=== PATIENT | female | born 1930 | race Caucasian/White ===

== ENCOUNTER → 2017-02-09 | Outpatient (CLI) | payer MEDICARE ==
--- NOTE | 2017-02-10 07:51 | WWHP ---
DATE OF SERVICE: 02/09/2017. CHIEF COMPLAINT: Patient is here for her routine gynecologic exam. HPI: This is an 86-year-old G0 with an LMP of 1961. The patient is without gynecologic complaints. She has been followed for postmenopausal ovarian cysts and has had ultrasounds and CA-125 test on several occasions. The most recent ultrasound on 08/20/2016 showed left ovarian cyst measuring 5.3 cm in the left ovary. There was also right ovarian cyst measuring approximately 3.1 cm and 3.2 cm. The patient has declined any form of surgical intervention at this point. She denies any pain and denies any postmenopausal bleeding. PAST MEDICAL HISTORY: Chronic hypertension, macular degeneration, recurrent UTIs, arthritis of the knee. MEDICATIONS: 1. [id number] Areds 2 PreserVision which is her eye vitamin. 2. She states she has not been taking her prescribed blood pressure medications. ALLERGIES TO COMPAZINE AND PENICILLIN. Past surgical and family histories are unchanged from the 2016 H&P. 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 She has been followed for postmenopausal ovarian cyst. REVIEW OF SYSTEMS: Weight has been stable. She denies respiratory or cardiac problems. GI: She has had some mucousy stools and plans to see Dr. Unger for this. She denies maltreatment or falling. : She does have to get up to urinate 1 to 2 times per night, but denies any problems with urinary leakage. PHYSICAL EXAM: Blood pressure 172/93 with repeat blood pressure 166/86. Height 5 feet 5 inches. Weight 166 pounds. Temperature 98.1, pulse 88. This a well-developed, well-nourished white female who is alert and oriented x3 in no acute distress. HEENT is within normal limits. NECK: Supple without mass or thyromegaly. CHEST AND LUNGS: Clear to auscultation. HEART: Regular rate and rhythm. Breasts are without mass or discharge. Axillary exam is negative for adenopathy. BACK: Negative for CVA tenderness. ABDOMEN: Soft, nontender, without palpable masses. PELVIC EXAM: External genitalia reveals moderate atrophy without lesions. Cervix and vagina reveal moderate atrophy without lesions. The cervix is somewhat stenotic secondary to atrophy. There is no evidence of prolapse. The uterus is midposition, nongravid size and nontender. There are no palpable adnexal masses or tenderness. Rectovaginal exam is negative for mass or tenderness and is negative for occult blood. EXTREMITIES: Nontender. IMPRESSION: 1. An 86-year-old menopausal female with normal gynecologic exam. 2. History of postmenopausal bilateral ovarian cysts which have been followed conservatively. PLAN: 1. Pap smear was performed. 2. Self-breast examination was discussed. 3. Mammogram is due, and a slip was given to patient for this. 4. CA-125 tests will be drawn today. 5. Pelvic ultrasound will be scheduled and these have been done about every 6 months. She would like to do her mammogram and ultrasound at [facility] as she has done in the past. 6. We have again discussed her menopausal ovarian cysts as well as other options, including surgical removal. Because of her health, she feels that she would like to avoid surgery if at all possible and would like to continue conservative management. 7. I have discussed her elevated blood pressure. I stressed importance of following her primary care doctor's instructions on blood pressure medications. 8. She will follow up with her primary resident care supervisor to further discuss her elevated blood pressure and need for medicine. 9. She typically does not get flu shots in the fall. 10. She will return in one year. AVINASH
== END | disposition home or self-care (01) ==
LOC: WWCWWP 12:33
PROVIDERS: ATTEND Obstetrics & Gynecology
DX: N83.201 Unspecified ovarian cyst, right side (principal); N83.202 Unspecified ovarian cyst, left side
CPT/HCPCS: 36415; 86304

== ENCOUNTER → 2018-04-26 | Outpatient (CLI) | payer MEDICARE ==
[2018-04-26 13:51] VITALS: PULSE 75; TEMP 96.2; BMI 25.4
--- NOTE | 2018-04-26 15:01 | P.HPOB ---
History of Present Illness H&P Date: 04/26/18 Chief Complaint: The patient is here for her routine gynecologic exam. This is an 87-year-old G0 with an LMP of 1961. The patient is without gynecologic complaints. The patient has been followed for bilateral ovarian cysts since 2014. The most recent pelvic ultrasound was on 02/10/2017 which showed a left ovarian cyst measuring 5.0 cm and a right simple variances measuring 3.9 cm. She is without gynecologic complaints and denies any postmenopausal bleeding. The ovarian cysts have been followed with yearly ultrasounds and CA125 testing. Review of Systems She has lost 8 pounds over the last year. She denies respiratory, cardiac and G.I. problems. She denies maltreatment . She did fall in this did require surgery on her right leg during the past year. : she denies any significant problems with urinary leakage, but does have occasional urinary urgency where she has to get to the bathroom right away. She does wear pad. Past Medical History Past Medical History: Hypertension Additional Past Medical History / Comment(s): Neuropathy,Arthritis, macular degeneration. 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 She has been followed for postmenopausal ovarian cysts History of Any Multi-Drug Resistant Organisms: None Reported Past Surgical History: Appendectomy, Orthopedic Surgery Additional Past Surgical History / Comment(s): right knee. 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 Uterine suspension. Colonoscopy 2014. Past Psychological History: No Psychological Hx Reported Smoking Status: Never smoker Past Alcohol Use History: Occasional (0-1 per week) Past Drug Use History: None Reported Additional History: She is a and has been with her partner since 1995. She has been infrequently sexually active. - Past Family History Father Family Medical History: Myocardial Infarction ([place]) Medications and Allergies Home Medications Medication Instructions Recorded Confirmed Type Moexipril [Univasc] mg PO DAILY 04/26/18 History Vit C/E/Zn/Coppr/Lutein/Zeaxan cap PO BID 04/26/18 History [Preservision Areds 2 Softgel] Allergies Allergy/AdvReac Type Severity Reaction Status Date / Time prochlorperazine AdvReac Severe Nausea & Unverified 04/26/18 13:43 [From Compazine] Vomiting Penicillins AdvReac Nausea & Unverified 04/26/18 13:43 Vomiting Exam Vital Signs Temp Pulse 04/26/18 13:43 96.2 F L 75 Intake and Output 04/25/18 04/26/18 04/26/18 22:59 06:59 14:59 Other: Weight 71.668 kg Height 5'6", BMI 25.5. This is a well-developed well-nourished white female who is alert and oriented times 3 in no acute distress. HEENT: Within normal limits. NECK: Supple without mass or thyromegaly. CHEST AND LUNGS: Clear to auscultation. HEART: Regular rate and rhythm. BREASTS: Are without mass or discharge. AXILLARY EXAM: Negative for adenopathy. BACK: Negative for CVA tenderness. ABDOMEN: Soft, nontender, without palpable masses. PELVIC EXAM: Normal external genitalia with moderate atrophy. Cervix and vagina appear normal with moderate atrophy. There is no unusual discharge. There is no evidence of prolapse. The uterus is midposition, nongravid size and nontender. There are no palpable adnexal masses or tenderness. RECTAL EXAM: rectovaginal exam is negative for mass or tenderness and is negative for occult blood. EXTREMITIES: Nontender. IMPRESSION: 1. 87-year-old menopausal female with normal gynecologic exam. 2. History of bilateral postmenopausal ovarian cysts which have been followed conservatively. The last ultrasound on 02/10/2017 showed a left ovarian cyst of 5.0 cm and a right ovarian cyst measuring 3.9 cm. PLAN: 1. Pap smear was deferred since she had a normal one last year. 2. Self breast awareness was discussed. 3. Pelvic ultrasound and Ca125 blood test will be done at [facility]. Order slips were given to the patient for these. 4. Screening mammogram is recommended and an order slip was given the patient for this as well. 5. Osteoporosis prevention was discussed. She is declining any form of treatment for bones and therefore she states she is not interested in bone density testing at this time. 6. She will return in one year.
--- NOTE | 2018-05-10 14:02 | P.PN ---
Progress Note - Text Progress Note Date: 05/10/18 OUTPATIENT FOLLOW-UP NOTE TEST(S)/RESULTS: test results from 05/03/2018 were tests done at [facility] and include a negative mammogram, normal CA125, and pelvic ultrasound which shows benign appearing simple cysts on both ovaries. The left ovarian cyst measures 5.1 cm in the right ovarian cyst measures 4.1 cm. METHOD OF NOTIFICATION: the patient was notified by phone. PATIENT COMMENTS: the patient understands the results and would like to continue with conservative management for the benign appearing cysts. DIAGNOSIS: benign appearing bilateral ovarian cysts in a menopausal female. Normal mammogram and normal CA 125 testing. DISCUSSION: there has been minimal change with the ovarian cysts. PLAN: she will return in one year for her annual exam and we will also repeat the pelvic ultrasound and Ca125 testing in one year.
== END | disposition home or self-care (01) ==
LOC: WWCWWP 12:53
PROVIDERS: ATTEND Obstetrics & Gynecology
DX: Z53.9 Procedure and treatment not carried out, unspecified reason (principal)

== ENCOUNTER → 2019-06-20 | Outpatient (CLI) | payer MEDICARE ==
[2019-06-20 15:16] VITALS: BP 160/78; PULSE 70; RESP 18; TEMP 97.9; BMI 26.1
--- NOTE | 2019-06-20 16:13 | P.HPOB ---
History of Present Illness H&P Date: 06/20/19 Chief Complaint: The patient is here for her routine gynecologic exam. This is an 88-year-old G0 with an LMP of 1961. The patient is without gynecologic complaints and denies any postmenopausal bleeding. The patient has been followed for bilateral ovarian cysts since 2014. Her most recent pelvic ultrasound on 05/03/2018 showed a 5.1 cm Left ovarian cyst and a 4.1 cm right ovarian cyst. These findings were stable from her previous ultrasound. Review of Systems She has gained about 5 pounds over the last year. She denies respiratory, cardiac and G.I. problems. She denies maltreatment or problems with falling. : she denies any significant problems with urinary leakage, but does occasionally leak with coughing or sneezing. Past Medical History Past Medical History: Hypertension Additional Past Medical History / Comment(s): Neuropathy,Arthritis, macular degeneration. 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 She has been followed for postmenopausal ovarian cysts History of Any Multi-Drug Resistant Organisms: None Reported Past Surgical History: Appendectomy, Orthopedic Surgery Additional Past Surgical History / Comment(s): right knee. 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 Uterine suspension. Colonoscopy 2014. Past Psychological History: No Psychological Hx Reported Smoking Status: Never smoker Past Alcohol Use History: Occasional (0-1 per week) Past Drug Use History: None Reported Additional History: She is a and has been with her partner since 1995. She states they are no longer sexually active. - Past Family History Father Family Medical History: Myocardial Infarction ([place]) Medications and Allergies Home Medications Medication Instructions Recorded Confirmed Type Moexipril [Univasc] 15 mg PO DAILY 04/26/18 06/20/19 History Vit C/E/Zn/Coppr/Lutein/Zeaxan 1 cap PO BID 04/26/18 06/20/19 History [Preservision Areds 2 Softgel] Acetaminophen Tab [Tylenol Tab] 325 mg PO Q6H PRN 06/20/19 06/20/19 History Allergies Allergy/AdvReac Type Severity Reaction Status Date / Time prochlorperazine AdvReac Severe Nausea & Unverified 06/20/19 15:16 [From Compazine] Vomiting Penicillins AdvReac Nausea & Unverified 06/20/19 15:16 Vomiting Exam Vital Signs Temp Pulse Resp BP Pulse Ox 06/20/19 15:08 97.9 F 70 18 160/78 98 Intake and Output 06/20/19 06/20/19 06/20/19 06:59 14:59 22:59 Other: Weight 73.482 kg Height 5'6", weight 162 pounds, BMI 26.1. This is a well-developed well-nourished white female who is alert and oriented times 3 in no acute distress. HEENT: Within normal limits. NECK: Supple without mass or thyromegaly. CHEST AND LUNGS: Clear to auscultation. HEART: Regular rate and rhythm. BREASTS: Are without mass or discharge. AXILLARY EXAM: Negative for adenopathy. BACK: Negative for CVA tenderness. ABDOMEN: Soft, nontender, without palpable masses. PELVIC EXAM: Normal external genitalia with moderate atrophy. Cervix and vagina appear normal with moderate atrophy. There is no unusual discharge. There is no evidence of prolapse. The uterus is midposition, nongravid size and nontender. There are no palpable adnexal masses or tenderness. RECTAL EXAM: rectovaginal exam is negative for mass or tenderness and is negative for occult blood. EXTREMITIES: Nontender. IMPRESSION: 1. 88-year-old menopausal female with normal gynecologic exam. 2. History of asymptomatic bilateral postmenopausal ovarian cysts which has been followed conservatively. One year ago the left ovarian cyst measured 5.1 cm and the right ovarian cyst measured 4.1 cm. PLAN: 1. Pap smear was performed. If this one is negative, we will discontinue Pap smear testing since she had a normal one of 02/09/17 and on 12/18/2014. A negative Pap smear would demonstrate adequate screening and with no history of cervical problems and being greater than 65 years of age, it should be safe to discontinue Pap smears. 2. Self breast awareness was discussed with the patient. 3. The patient had a normal screening mammogram on 05/25/2019 at [facility]. 4. Osteoporosis prevention was discussed. I have stressed the importance of adequate calcium, vitamin D and regular exercise. Recommended amounts of calcium and vitamin D were also discussed. She states she did take medication for osteopenia or osteoporosis for 3 years in the past. She states she would not want to take any type of medication and therefore does not want to do bone density testing. 5. Pelvic ultrasound and Ca125 testing were recommended. Ca125 will be drawn today. The order slip for the pelvic ultrasound was given to the patient and she will have this done at [facility], as she has done in the past. 6. She states she does not get flu shots in the fall. I have recommended that she reconsider this decision. 7. She was advised to return in one year for her annual well woman exam.
== END | disposition home or self-care (01) ==
LOC: WWCWWP 14:34
PROVIDERS: ATTEND Obstetrics & Gynecology
DX: R19.09 Other intra-abdominal and pelvic swelling, mass and lump (principal); N83.201 Unspecified ovarian cyst, right side; Z78.0 Asymptomatic menopausal state
CPT/HCPCS: 36415; 86304